=== PATIENT | female | born 1970 | race Caucasian/White ===

== ENCOUNTER 2017-12-09 15:23 | Emergency (ER) | payer SELFPAY ==
--- NOTE | 2017-12-09 16:03 | RAD ---
RIGHT HAND THREE VIEWS: History: Right hand pain and swelling. FINDINGS: Joint spaces are preserved. Osteophytosis and subchondral sclerosis are somewhat pronounced at the fi rst metacarpal phalangeal joint and interphalangeal joint of the thumb and the proximal interphalange al joint right little finger where persistent flexion is apparent. Small well corticated ossification s like about the first metacarpal head. Ulna negative variant is noted. 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 No acute osseous abnormalities are apparent. POS: [facility]
[2017-12-09 17:03] LABS: #Basophils 0.1 thou/uL (0.0-0.2); #Eosinphils 0.3 thou/uL (0.0-0.7); #Lymphocytes 2.3 thou/uL (1.20-3.40); #Monocytes 0.7 thou/uL (0.11-0.59); #Neutrophils 3.8 thou/uL (1.40-6.50); %Eosinophils 4.1 % (0.0-10.0); %Lymphocytes 32.3 % (21.0-51.0); %Monocytes 9.8 % (0.0-10.0); %Neutrophils 52.7 % (42.0-75.0); Hemoglobin 12.6 g/dL (12.0-16.0); Mean Corpuscular HGB CONC 32.5 g/dL (32.0-36.0); Mean Corpuscular Hemoglobin 31.3 pg (27.0-31.0); Mean Corpuscular Volume 96.2 fl (81.0-99.0); Mean Platelet Volume 9.3 fL (7.4-10.4); Platelet Count 212 thou/uL (130-400); RBC Distribution Width 12.2 % (11.5-14.5); Red Blood Cell (RBC) Count 4.01 mill/uL (4.20-5.40); White Blood Cell (WBC) Count 7.2 thou/uL (4.8-10.8)
[2017-12-09] MEDS ORDERED: Cephalexin 250 MG CAP ONE (19:18)
[2017-12-09] MEDS ORDERED: Sulfameth/Trimethoprim DS 800-160mg TAB ONE (19:18)
--- NOTE | 2017-12-09 20:10 | ULT ---
RIGHT UPPER EXTREMITY VENOUS DOPPLER WITH SPECTRAL ANALYSIS AND COLOR FLOW EVALUATION: Date: 12-09-17 History: Right hand pain and swelling for three days. FINDINGS: Grayscale, color flow, doppler evaluation, and spectral analysis of the right upper extremity venous structures is performed with 2D imaging. There is normal flow demonstrated in the right subclavian vein with normal lumen compressibility and flow seen within the right internal jugular, axillary and brachial veins. There is also normal lumen compressibility and flow seen within the right upper extremity ulnar and radial vein as well as invo lving the right upper extremity cephalic and basilic veins. IMPRESSION: No evidence of a DVT involving the visualized deep venous structures of the right upper extremity. POS: [facility]
== END 2017-12-09 19:24 | disposition home or self-care (01) ==
LOC: ERS 15:23
DX: L03.113 Cellulitis of right upper limb (principal); F32.9 Major depressive disorder, single episode, unspecified; F41.9 Anxiety disorder, unspecified
CPT/HCPCS: 36415; 85025; 85652; 86140